=== PATIENT | male | born 1980 | race Caucasian/White ===

== ENCOUNTER 2017-10-19 06:08 | Inpatient (IN) | payer OTHER ==
[~2017-10-19 06:08] MED LIST: Buffered Lidocaine 0.9% SYRIN* 5 ML/SYR SYRINGE INTRADERM ONE; Sodium Citrate/Citric Acid* 15 ML UDC PO ONE
[2017-10-19] MEDS ORDERED: ceFAZolin 2 GM PREMIX (*) 2 GM/50 ML BAG IVPB ONE (06:11)
[2017-10-19] MEDS ORDERED: ceFAZolin 1 GM in Dextrose (*) 1 GM/50 ML BAG IVPB ONE (06:11)
[2017-10-19] MEDS ORDERED: Sodium Citrate/Citric Acid* 15 ML UDC ONE (06:11)
[2017-10-19] MEDS ORDERED: Heparin VIAL(*) 5000 UNITS/ML VIAL (FIVE THOUSAND) ONE (06:11)
[2017-10-19] MEDS ORDERED: Bupivacaine 0.25% SDV* 30 ML ONE (06:56)
[2017-10-19] MEDS ORDERED: Rocuronium* 10 MG/ML VIAL ONE (07:37)
[2017-10-19] MEDS ORDERED: Propofol* 10 MG/ML 20 ML BTL IV PUSH ONE (07:37)
[2017-10-19] MEDS ORDERED: Lidocaine 2% PF * 5 ML VIAL ONE (07:37)
[2017-10-19] MEDS ORDERED: fentaNYL* 50 MCG/ML 2 ML VIAL (100 MCG VIAL) ONE ×5 (07:38→11:43)
[2017-10-19] MEDS ORDERED: Cisatracurium* 2 MG/ML MDV 5 ML ONE (08:26)
[2017-10-19] MEDS ORDERED: Labetalol IV* 5 MG/ML 20 ML VIAL ONE (08:46)
[2017-10-19] MEDS ORDERED: Naloxone* 0.4 MG/ML 1 ML VIAL IV PRN (09:14)
[2017-10-19] MEDS ORDERED: DiMENhydriNATE IV* 50 MG/ML VIAL IV PUSH PRN (09:14)
[2017-10-19] MEDS ORDERED: Scopolamine 1.5 mg* PATCH TRANSDERM PRN (09:14)
[2017-10-19] MEDS ORDERED: Glycopyrrolate IV* 0.2 MG/ML 1 ML VIAL ONE (09:55)
[2017-10-19] MEDS ORDERED: Neostigmine Methylsulfate* 2 MG/2 ML SYRINGE ONE (09:55)
[2017-10-19] MEDS ORDERED: Dextrose 50% Syringe 50 ML* 25 GM/50 ML SYRINGE IV PUSH PRN (10:35)
[2017-10-19] MEDS ORDERED: diPHENhydraMINE IV* 50 MG/ML 1 ml VIAL (BENADRYL) SLOW PUSH PRN (10:35)
[2017-10-19] MEDS ORDERED: Acetaminophen ADULT LIQ* 650 MG/20.3 ML UDC PO PRN (10:35)
[2017-10-19] MEDS ORDERED: Ondansetron INJ* 2 MG/ML VIAL IV PRN (10:35)
--- NOTE | 2017-10-19 10:35 | OP ---
Operative Report - Blank - Operative Report Date of Operation: 10/19/17 Note: Preop Dx: morbid obesity Postop Dx: same Procedure: laparoscopic sleeve gastrectomy Anesthesia: GET Surgeon: Cali Asst: JUSTINA Fink; Kierra Fluids: 1600 ml RL EBL: 200 ml Specimen: portion stomach Drains: none Findings: dictated
[2017-10-19] MEDS: fentaNYL* 50 MCG/ML 2 ML VIAL (100 MCG VIAL) IV PRN ×5 (10:49→11:45)
[2017-10-19] MEDS ORDERED: Insulin LISPRO* 1 UNITS UNIT SUBCUT ONE (10:54)
[2017-10-19] MEDS: Insulin LISPRO* 1 UNITS UNIT SUBCUT SCH ×2 (10:55→19:21)
[2017-10-19] MEDS ORDERED: Ketorolac INJ* 30 MG/ML 1 ML VIAL ONE (11:43)
[2017-10-19] MEDS ORDERED: HYDROmorphone INJ* 2 MG/ML CARPUJECT SYRINGE ONE (12:24)
[2017-10-19] MEDS ORDERED: HYDROmorphone INJ* 1 MG/ML CARPUJECT SYRINGE ONE (14:51)
[2017-10-19] MEDS: Famotidine IV* 10 MG/ML 2 ML (20 mg) IV SLOW PU SCH (20:22)
[2017-10-19] MEDS: HYDROmorphone INJ* 2 MG/ML CARPUJECT SYRINGE IV PRN (20:23)
[2017-10-19] MEDS ORDERED: Timolol 0.25% OPHTH.SOLN* BTL RIGHT EYE SCH (21:00)
[2017-10-19] MEDS ORDERED: Phenol 1.4% Spray* 177 ML BTL MT PRN (22:00)
--- NOTE | 2017-10-19 22:01 | OP ---
CC: JUSTINA Hunter, Asya HANSEN; [facility] * DATE OF OPERATION: 10/19/17 - ROOM #352 DATE OF : 80 SURGEON: Arik Leiva MD [employer]EEPER [employer] MACHINE: JUSTINA Suarez and Spencer Lozada MD ANESTHESIOLOGIST: Dr. Bijan Doe. ANESTHESIA: General endotracheal. PRE-OP DIAGNOSIS: Clinically severe obesity. POST-OP DIAGNOSIS: Clinically severe obesity. OPERATIVE PROCEDURE: Laparoscopic sleeve gastrectomy. ESTIMATED BLOOD LOSS: 200 mL. IV FLUIDS: 1.6 L of crystalloid. SPECIMENS: Portion of stomach. DRAINS: None. COMPLICATIONS: None. COUNTS: Instrument, needle, and sponge counts were correct. DESCRIPTION OF PROCEDURE: The patient was brought to the operating room and placed on the table supine. Sequential compression devices were placed on both lower extremities. General anesthesia was administered. The abdomen was prepped and draped in the usual sterile fashion. He received appropriate intravenous antibiotics. He was positioned and padded and after a time-out was performed, local anesthetic was infiltrated in the left upper quadrant to accommodate a 5-mm optical trocar. After accessing the peritoneal cavity, carbon dioxide was insufflated to a pressure of 15 mmHg. A laparoscope was introduced, which was 5 mm 30-degree angle laparoscope. The patient was noted to have hepatomegaly with findings of fatty liver. Visualization of the stomach was poor. A 12-mm trocar was placed in the supraumbilical midline and the camera was exchanged to a 10 mm 30- degree laparoscope due to the difficulty with the size of the liver as well as the thickness of the abdominal wall, which was creating a lot of torque for the instrumentation and the camera. The initial incision site was ultimately used for the Rae liver retractor, which was placed percutaneously through the wound and used to elevate the liver. This did permit adequate visualization of the entirety of the stomach and the hiatus. A left upper quadrant 12-mm trocar was placed further laterally to the liver retractor at about the same line to be used as a camera port and a 12-mm trocar was placed in the right upper quadrant, but this was eventually exchanged for 15 mm trocar later in the case. A 5 mm trocar was also placed in the left upper quadrant further laterally for the assistance. The pylorus was identified and approximately 6 cm proximal to this on the greater curvature, the vasculature was divided with the LigaSure and the lesser sac was entered, then the division of the short gastrics was performed up until a point in the fundus of the stomach where the posterior short gastric vessels were divided. At this point, bleeding was encountered, which was eventually controlled with direct pressure on the retroperitoneum and clips placed on the stomach side. The mobilization of the fundus of the stomach was completed both from an anterior approach taking down the epigastric fat-pad as well as from a lateral and posterior approach dividing all of the fatty attachments with the LigaSure until the stomach was completely mobilized. At this point, the sleeve gastrectomy was performed over a 40-[place] bougie using the Endo RONNY stapler with reinforced cartridge. A black cartridge was used on the antrum of the stomach and purple cartridges were used along the remaining portion of the stomach dividing this all the way up to the area of gastro-esophageal junction. The hemostasis of the retroperitoneal side had been achieved with the use of Surgicel, which was left in situ. The gastric specimen was removed through the right upper quadrant 15 mm port side and all the remaining trocars were removed under direct visualization. Carbon dioxide was released. The skin incisions were closed with 4-0 Monocryl in a subcuticular fashion and Steri-Strips applied. The patient tolerated the procedure well. He was extubated and transferred to the recovery room in a stable condition. [id number]/[facility] #: [id number] MTDD
[2017-10-19] MEDS: Ketorolac INJ* 30 MG/ML 1 ML VIAL IV PRN (22:08)
[2017-10-19] MEDS: PTO Dorzolamide/Timolol OPTH (NF) 10 ML BOT RIGHT EYE SCH (22:11)
[2017-10-19] MEDS: BRIMONIDINE 0.2% RIGHT EYE SCH (22:11)
[2017-10-19] MEDS: LATANOPROST 0.005% RIGHT EYE SCH (22:12)
[2017-10-20] MEDS: Insulin LISPRO* 1 UNITS UNIT SUBCUT SCH ×5 (00:06→21:26)
[2017-10-20] MEDS: BRIMONIDINE 0.2% RIGHT EYE SCH ×3 (00:13→21:24)
[2017-10-20] MEDS: PTO Dorzolamide/Timolol OPTH (NF) 10 ML BOT RIGHT EYE SCH ×3 (00:14→21:19)
[2017-10-20] MEDS: LATANOPROST 0.005% RIGHT EYE SCH ×2 (00:14→21:23)
[2017-10-20] MEDS: HYDROmorphone INJ* 2 MG/ML CARPUJECT SYRINGE IV PRN (03:41)
[2017-10-20] MEDS: Ketorolac INJ* 30 MG/ML 1 ML VIAL IV PRN ×3 (04:36→18:02)
[2017-10-20] MEDS: Heparin VIAL(*) 5000 UNITS/ML VIAL (FIVE THOUSAND) SUBCUT SCH ×3 (06:11→21:26)
[2017-10-20] MEDS ORDERED: Ketorolac INJ* 30 MG/ML 1 ML VIAL IV PRN (09:00)
[2017-10-20] MEDS: Famotidine IV* 10 MG/ML 2 ML (20 mg) IV SLOW PU SCH ×2 (09:00→21:19)
--- NOTE | 2017-10-20 11:30 | PN ---
Progress Note - Progress Note Date of Service: 10/20/17 SOAP: Subjective: No current N/V. Has better pain control with Toradol than dilaudid. Was up and walking. Objective: Vital Signs Temp 97.7 F 10/20/17 08:45 Pulse 83 10/20/17 08:45 Resp 16 10/20/17 10:00 BP 131/57 10/20/17 08:45 Pulse Ox 100 10/20/17 10:00 Gen: NAD; lying in bed Abd: incis with dressings c/d/i; soft and mildly tender at incision. Intake & Output 10/19/17 10/20/17 10/20/17 18:59 06:59 18:59 Intake Total 1999 1979 Output Total 250 1000 0 Balance 1750 980 0 Intake: IV Fluids 1999 1979 LR 1999 1979 Oral 0 Output: Urine 1000 0 Estimated Blood Loss 250 Other: Estimated Void Medium # Voids 1 Laboratory Results - last 24 hr 10/19/17 10/19/17 10/19/17 12:11 18:29 18:45 POC Glucose (mg/dL) 236 H Troponin I 0.01 0.01 10/19/17 10/20/17 23:59 06:02 POC Glucose (mg/dL) 186 H 179 H Troponin I Assessment: POD#1 s/p LSG Plan: Adv diet. Increase activity. Home likely tomorrow.
[2017-10-20] MEDS: D5W 1/2 NS KCl 20 Meq 1000 ML* 1,000 ML IV SCH ×2 (13:31→21:57)
[2017-10-20] MEDS: HYDROcodone/ACET. 7.5/325 LIQ* 15 ML UDC PO PRN ×2 (15:46→21:52)
[2017-10-20] MEDS ORDERED: Insulin LISPRO* 1 UNITS UNIT SUBCUT ONE (18:00)
[2017-10-21] MEDS: Ketorolac INJ* 30 MG/ML 1 ML VIAL IV PRN (04:16)
[2017-10-21] MEDS: Heparin VIAL(*) 5000 UNITS/ML VIAL (FIVE THOUSAND) SUBCUT SCH (06:01)
[2017-10-21] MEDS: D5W 1/2 NS KCl 20 Meq 1000 ML* 1,000 ML IV SCH (06:04)
[2017-10-21 08:08] VITALS: BP 129/63
[2017-10-21] MEDS: PTO Dorzolamide/Timolol OPTH (NF) 10 ML BOT RIGHT EYE SCH (09:06)
[2017-10-21] MEDS: Insulin LISPRO* 1 UNITS UNIT SUBCUT SCH ×2 (09:08→11:45)
[2017-10-21] MEDS: Famotidine IV* 10 MG/ML 2 ML (20 mg) IV SLOW PU SCH (09:10)
[2017-10-21] MEDS: BRIMONIDINE 0.2% RIGHT EYE SCH (09:10)
[2017-10-21] MEDS: HYDROcodone/ACET. 7.5/325 LIQ* 15 ML UDC PO PRN (11:45)
--- NOTE | 2017-10-21 16:35 | DS ---
CC: JUSTINA Waldron * DATE OF ADMISSION: 10/19/2017. DATE OF DISCHARGE: 10/21/2017. ATTENDING SURGEON: Dr. Arik Leiva * (JUSTINA Suarez dictating). HOSPITAL COURSE: The patient was taken to the operating room on 10/19/2017 where he underwent laparoscopic sleeve gastrectomy with Dr. Leiva. Please see separate operative report for details. The patient has had an otherwise uneventful postoperative course with gradual improvement in pain and tolerance of bariatric clear liquids. He was doing well with oral intake as of the morning of discharge. PHYSICAL EXAMINATION: Vital Signs: Temperature 97.8, blood pressure 129/63, pulse 89, respirations 18, room air saturation 99 percent. Heart: Regular rate and rhythm. Lungs: Clear to auscultation. Abdomen: Laparoscopic incision site is healing well with small amounts of dried sanguinous drainage under Steri-Strips, some of which were replaced. Soft, minimal incisional tenderness to palpation. IMPRESSION: Status post laparoscopic sleeve gastrectomy. PLAN: Home today. He has a scheduled follow-up at the [facility] next week. He will resume his usual pain medications, though a prescription was also e-sent for Hydrocodone elixir prn. He will contact his primary care office for further modifications in his diabetic management. JUSTINA SUAREZ [id number]/[facility] #: [id number] MTDD
== END 2017-10-21 14:35 | disposition home or self-care (01) | DRG 403 ==
LOC: AA 06:08 → SSU 14:28
PROVIDERS: ADMIT Surgery; ATTEND Surgery
PROC: 0DB64Z3 Excision of Stomach, Percutaneous Endoscopic Approach, Vertical (ICD-10-PCS; principal; 2017-10-19 07:45)
DX: E66.01 Morbid (severe) obesity due to excess calories (principal); E11.36 Type 2 diabetes mellitus with diabetic cataract; K76.0 Fatty (change of) liver, not elsewhere classified; H40.9 Unspecified glaucoma; I10 Essential (primary) hypertension; K21.9 Gastro-esophageal reflux disease without esophagitis; G89.29 Other chronic pain; G47.33 Obstructive sleep apnea (adult) (pediatric); R16.0 Hepatomegaly, not elsewhere classified; M54.9 Dorsalgia, unspecified; M54.2 Cervicalgia; F41.9 Anxiety disorder, unspecified; F32.9 Major depressive disorder, single episode, unspecified; E78.5 Hyperlipidemia, unspecified; Z82.61 Family history of arthritis; Z80.8 Family history of malignant neoplasm of other organs or systems; Z83.49 Family history of other endocrine, nutritional and metabolic diseases; Z88.5 Allergy status to narcotic agent; Z83.3 Family history of diabetes mellitus; Z82.49 Family history of ischemic heart disease and other diseases of the circulatory system; Z56.0 Unemployment, unspecified; Z87.891 Personal history of nicotine dependence; Z68.43 Body mass index [BMI] 50.0-59.9, adult
CPT/HCPCS: 36415; 43775; 84484; 88307; 93005; A9270-GY; J0690; J1170; J1644; J1885; J2405; J2704; J3010